=== PATIENT | male | born 1955 | race Caucasian/White ===

== ENCOUNTER 2017-03-02 10:29 | Day surgery (SDC) | payer OTHER, SELFPAY ==
[2017-03-02 10:45] VITALS: BP 122/86; PULSE 74; RESP 16; TEMP 36.7; O2SAT 97; BMI 27.5
--- NOTE | 2017-03-02 11:57 | PCM.DC.URO ---
Discharge Diet: Light diet - advance as tolerated Discharge Activity: May not drive while taking narcotic pain medications. Call your doctor if your incision/area has: Continuous Slow Oozing Suture Line Care: Avoid Pulling/Pushing, Avoid Pinching/Bending Instructions: Shock Wave Lithotripsy Allergies/Adverse Reactions: Allergies tetanus and diphtheria toxoids Adverse Reaction (Verified 02/23/17 13:10) Swelling Medications to take at Discharge Cholecalciferol (Vitamin D3) [Vitamin D3] 2,000 unit PO DAILY 02/23/17 Multivitamin [Multiple Vitamins] 1 each PO DAILY 02/23/17 [place]-3 Fatty Acids/Fish Oil [Fish Oil 1,000 mg Capsule] 1 each PO DAILY 02/23/17 Hydrocodone/Acetaminophen [[place] 5-325 Tablet] 1 ea PO Q4H PRN PRN #14 tab 03/02/17 The following prescriptions were given: Hydrocodone/Acetaminophen [[place] 5-325 Tablet] 1 ea PO Q4H PRN PRN #14 tab PRN Reason: Pain Primary Care Physician: Malvin Lopez Chi, MD [Primary Care Provider] - Please Follow Up With: Ignacio Schultz MD When: please call to make an appointment.
--- NOTE | 2017-03-02 12:36 | PCM.OPRPT ---
Problem List (1) Right kidney stone Status: Acute Report of Operation Date of Procedure: 03/02/17 Pre-Operative Diagnosis: Right renal calculi Post-Operative Diagnosis: Same Surgery/Procedure Performed:: Right extracorporeal shockwave lithotripsy Description of Surgical Findings:: 61-year-old male was taken back to the operating room after smooth induction of general anesthesia, patient was positioned on the lithotripter table and we localize the stones in the right kidney under fluoroscopy we then applied 3000 shockwaves to the stone at a rate of 120, power of the 5-6 and during the treatment the stone fragmented really well. Appeared to be a successful treatment. Patient's anesthetic was reversed he was taken back to the PACU in good condition he will follow-up in a few weeks with a KUB no stent was placed. Type of Anesthesia:: General Drains: none - Admit VTE Documentation VTE Present on Admission: No VTE Mechan Device Prophylaxis: SCD's VTE Pharm Prophylaxis ordered?: No Reason prophylaxis not ordered:: Treatment Not Indicated
[2017-03-02 12:41] VITALS: BP 122/86; PULSE 64; RESP 15; TEMP 37.3; O2SAT 95
[2017-03-02 12:45] VITALS: BP 121/87; BP 122/86; PULSE 61; RESP 16; O2SAT 94
[2017-03-02 13:00] VITALS: BP 122/86; BP 122/92; PULSE 64; RESP 16; TEMP 36.6; O2SAT 97
[2017-03-02] MEDS: HYDROcodone Bitartrate/Apap 5/325 Tablet PO (13:14)
[2017-03-02 14:36] VITALS: BP 122/86
== END 2017-03-02 14:37 | disposition home or self-care (01) ==
LOC: SDC 10:30 → AC 10:31
PROVIDERS: Family Provider Family Medicine Geriatric Medicine; PCP Family Medicine Geriatric Medicine; Visit Provider Urology
PROC: (CPT 50590; principal; 2017-03-02 12:20)
DX: N20.0 Calculus of kidney (principal); Z87.442 Personal history of urinary calculi
CPT/HCPCS: 00873; 50590; J7120; J2405

== ENCOUNTER → 2017-03-15 13:55 | Outpatient (CLI) | payer OTHER, SELFPAY ==
--- NOTE | 2017-03-15 13:58 | RAD_ITS ---
STUDY: X-RAY - ABDOMEN/PELVIS REASON FOR EXAM: Male, 61 years old. Post lithotripsy, kidney stones TECHNIQUE: 2 views COMPARISON: February 23 FINDINGS: Normal visualized lung bases. There is an unremarkable bowel gas pattern. There is no demonstrated free abdominal air. Stable-appearing stones are noted overlying the right renal shadow. Normal soft tissue structures. Mild degenerative vertebral changes. RAD/Abdomen Single View IMPRESSION: Stable right renal calculi. Electronically Signed: Dwayne Franklin DO at 18:48 EST Tel [phone], Service support ,
== END ==
PROVIDERS: Family Provider Family Medicine Geriatric Medicine; PCP Family Medicine Geriatric Medicine; Visit Provider Urology
DX: N20.0 Calculus of kidney (principal)
CPT/HCPCS: 74018

== ENCOUNTER → 2017-06-28 09:51 | Outpatient (CLI) | payer OTHER, SELFPAY ==
[2017-06-28 13:06] LABS: Absolute Lymphocyte Count 1.64 X10^3/ul (0.83-4.51); Absolute Neutrophil Count 2.2 X10^3/uL (2.0-7.7); Basophil# 0.02 X10^3/uL; Basophil% 0.4 % (0-1); Eosinophil# 0.11 X10^3/uL; Eosinophils% 2.4 % (0-5); Hematocrit 44.7 % (40-54); Hemoglobin 15.7 g/dl (13.0-16.5); Lymphocyte # 1.64 X10^3/ul (4.0); Lymphocyte % 35.7 % (19-41); Mean Corp Hgb Conc 35.1 g/gl (32-36); Mean Corpuscular Hgb 32.2 pg (27.0-32.0); Mean Corpuscular Volume 91.6 fL (80-94); Mean Platelet Vol. 11.8 fl (6.2-12.0); Monocyte% 13.1 % (0-10); Neutrophil # 2.21 X10^3/uL (2.7-7.7); Neutrophil % 48.2 % (47-70); POSITIVE COUNT NO; POSITIVE DIFFERENTIAL NO; POSITIVE MORPHOLOGY NO; Platelet Count 155 K/mm3 (150-450); RBC Distribution Width CV 12.9 % (11.6-14.6); RBC Distribution Width SD 42.2 fl (35.1-43.9); Red Blood Count 4.88 M/mm3 (4.6-6.2); White Blood Count 4.6 K/mm3 (4.4-11.0)
[2017-06-28 13:22] LABS: ALB/GLOB Ratio 1.3 RATIO (0.9-2.4); AST(SGOT) 22 U/L (15-37); Alanine Aminotransfer ALT/SGPT 25 U/L (16-61); Albumin, Serum 4.3 g/dL (3.2-5.0); Alkaline Phosphatase 57 U/L (45-117); Anion Gap 5 (5-15); BUN 13 mg/dL (7-18); BUN/Creat Ratio 12.3 RATIO (10-20); Calcium,Total 8.9 mg/dL (8.5-10.1); Chloride 106 mmol/L (98-107); Creatinine, Serum 1.06 mg/dL (0.70-1.30); EST Glomerular Filtration Rate 75 mL/min (>60); Est Glom Filt Rate - Afr Amer 91 mL/min (>60); Globulin 3.2 g/dL (2.2-4.2); Glucose 90 mg/dL (74-106); PSA,Total - Annual Screen 0.74 ng/mL (0.00-4.00); Potassium 3.9 mmol/L (3.5-5.1); Protein, Total 7.5 g/dL (6.4-8.2); Sodium Level 139 mmol/L (136-145); Thyroid Stim Hormone (TSH) 2.22 uIU/mL (0.358-3.74)
[2017-06-29 11:41] LABS: Hep C Antibodies <0.1 s/co ratio (0.0-0.9)
== END ==
PROVIDERS: Family Provider Family Medicine Geriatric Medicine; PCP Family Medicine Geriatric Medicine; Visit Provider Family Medicine Geriatric Medicine
DX: Z13.89 Encounter for screening for other disorder (principal); Z12.5 Encounter for screening for malignant neoplasm of prostate; F52.8 Other sexual dysfunction not due to a substance or known physiological condition; R53.83 Other fatigue
CPT/HCPCS: 36415; 80053; 84153; 84403; 84443; 85025; 86803; G0103

== ENCOUNTER → 2017-09-20 09:50 | Outpatient (CLI) | payer OTHER, SELFPAY | PROVIDERS: Family Provider Family Medicine Geriatric Medicine; PCP Family Medicine Geriatric Medicine; Visit Provider Urology | DX: N20.0 Calculus of kidney (principal) | CPT/HCPCS: 74018 ==

== ENCOUNTER → 2018-04-04 14:30 | Outpatient (CLI) | payer OTHER, SELFPAY ==
--- NOTE | 2018-04-04 14:46 | RAD_ITS ---
STUDY: X-RAY - ABDOMEN/PELVIS REASON FOR EXAM: Male, 62 years old. Right flank pain. TECHNIQUE: Two AP supine views of the abdomen and pelvis. COMPARISON: 09/20/2017 FINDINGS: Again noted are calcifications overlying the right renal shadow which likely represent right collecting system stones. There is no bowel obstruction. There is air and stool to the level of the rectum. The visualized osseous structures are within normal limits. RAD/Abdomen Single View IMPRESSION: Stable calcifications overlying the right renal shadow which likely represent right renal collecting system stones. No bowel obstruction. Electronically Signed: Kirk Reynaga, at 15:03 EST Tel , Service support ,
== END ==
PROVIDERS: Family Provider Family Medicine Geriatric Medicine; PCP Family Medicine Geriatric Medicine; Referring Provider Urology; Visit Provider Urology
DX: N20.0 Calculus of kidney (principal)
CPT/HCPCS: 74018

== ENCOUNTER 2018-04-26 06:40 | Day surgery (SDC) | payer OTHER, SELFPAY ==
--- NOTE | 2018-04-25 17:46 | PCM.HP.BLA ---
History and Physical Date of Admission: 04/26/18 I have kidney stones. HPI: GRAHAM MOSCOSO is a 62 year-old male established patient who is here for renal calculi. The problem is on the right side. He first noticed the symptoms 1 year ago. Pain is occuring on the right side. This is not his first kidney stone. He has had 2 stones prior to getting this one. He is currently having flank pain and back pain. He denies having groin pain, nausea, vomiting, fever, and chills. He has had eswl for treatment of his stones in the past. Multiple stones in the kidney. The stone is obstructing The kidney.. The stone is in the upper pole of the kidney.. ALLERGIES: Tetanus MEDICATIONS: None PSH: Renal ESWL, Right - 03/02/2017 NON- PSH: Colonoscopy - about 2016 Patient not documented to have received pneumococcal vaccination PMH: Calculus of kidney - 03/15/2017, - 02/13/2017, Bilateral, - 07/27/2016 Asymptomatic microscopic hematuria - 02/13/2017 Personal history of urinary calculi NON- PMH: None Immunizations: None FAMILY HISTORY: Alzheimer's Disease - Father Heart Disease - Mother SOCIAL HISTORY: Marital Status: Single Preferred Language: Lithuanian; Ethnicity: Not Or ; Race: White Current Smoking Status: Patient has never smoked. Tobacco Use Assessment Completed: Used Smokeless in last 30 days? Smoking cessation counseling was provided. Does not use smokeless tobacco. Social Drinker. Does not use drugs. Drinks 3 caffeinated drinks per day. Has not had a blood transfusion. REVIEW OF SYSTEMS: Constitutional: Patient denies fever, chills, weight loss, and weight gain. Genitourinary: Patient reports get up at night to void and history of stones. Patient denies frequent urination, urinary retention, leakage of urine, painful urination, blood in the urine, frequent uti's, difficulty starting stream, weak stream/scanty, and bedwetting. Notes: Reviewed previous review of systems 09/20/2017. No changes. VITAL SIGNS: 04/04/2018 03:08 PM Weight 180 lb / 81.65 kg Height 68 in / 172.72 cm BP 122/60 mmHg BMI 27.4 kg/m? - BMI Counseling was provided. MULTI-SYSTEM PHYSICAL EXAMINATION: Constitutional: Well-nourished. No physical deformities. Normally developed. Good grooming. Neck: Neck symmetrical, not swollen. Normal tracheal position. Respiratory: No labored breathing, no use of accessory muscles. Cardiovascular: Normal temperature, normal extremity pulses, no swelling, no varicosities. Lymphatic: No enlargement of neck, axillae, groin. Skin: No paleness, no jaundice, no cyanosis. No lesion, no ulcer, no rash. Neurologic / Psychiatric: Oriented to time, oriented to place, oriented to person. No depression, no anxiety, no agitation. Gastrointestinal: No mass, no tenderness, no rigidity, non obese abdomen. Eyes: Normal conjunctivae. Normal eyelids. Ears, Nose, Mouth, and Throat: Left ear no scars, no lesions, no masses. Right ear no scars, no lesions, no masses. Nose no scars, no lesions, no masses. Normal hearing. Normal lips. Musculoskeletal: Normal gait and station of head and neck. PAST DATA REVIEWED: Source Of History: Patient Records Review: Previous Doctor Records, Previous Patient Records X-Ray Review: KUB: Reviewed Films. Reviewed Report. Discussed With Patient. PROCEDURES: Urinalysis - [address]1881 Dipstick Dipstick Cont'd Specimen: Voided Blood: Neg Appearance: Clear pH: 6.5 Color: Yellow Protein: Neg Glucose: Normal Urobilinogen: Neg Bilirubin: Neg Nitrites: Neg Ketones: Neg Leukocyte Esterase: Neg ASSESSMENT: ICD-10 Details 1 : Calculus of kidney - N20.0 PLAN: Schedule Procedure: Unspecified Date - Cysto Uretero Lithotripsy - 24297, right Document Letter(s): Created for Patient: Clinical Summary The risks, benefits, and some of the possible complications of the proposed procedure were discussed with the patient at length and in detail including the possibility of bladder injury, urethral injury, ureteral injury, ureteral biopsy, ureteral lesion resection, open nephrectomy, a bladder biopsy, retrograde pyelograms, resection of a bladder lesion, dilation of the urethra, a postoperative catheter, placement of a ureteral stent, and others. The possible need for further surgical procedures was discussed with the patient. The possible need for postoperative treatments including further surgical procedures, chemotherapy, immunotherapy, radiation therapy, and others was discussed with the patient. The possibility that this operative procedure might not to cure the underlying disease, that micrometastatic disease might already be present, and that this underlying disease might result in the of the patient was discussed. The general risks of the operative procedure and the perioperative period were discussed with the patient at length and in detail including swelling, pain, nausea, vomiting, fever, chills, infection, wound infection, sepsis, renal failure, internal or external bleeding, intraoperative bowel, organ or vascular injuries, postoperative formation of scar tissue, the need for blood transfusions, deep venous thrombosis or blood clots, pulmonary embolus, pneumonia, respiratory failure, heart attack, stroke, he and others. All of the patient's questions were answered and he voiced an understanding of these risks, benefits and possible complications. The patient gave fully informed consent to proceed with the procedure. Notes: plan for Right ureteroscopy laser stones and stent
[2018-04-26] VITALS (8 sets, daily range): BP systolic 120–150; BP diastolic 72–97; PULSE 67–76; RESP 16; TEMP 35.9–36.7; O2SAT 92–97; BMI 28.3
[2018-04-26] MEDS: Cefazolin 2 GM in 0.9% Normal Saline 100 ML IV (09:18)
--- NOTE | 2018-04-26 09:21 | PCM.DC.URO ---
Discharge Diet: Light diet - advance as tolerated Discharge Activity: Return to Normal Activity Call your doctor if you observe: Fever of 101 or Higher, Inability to urinate, Uncontrolled pain Suture Line Care: Avoid Pulling/Pushing, Avoid Pinching/Bending Instructions: Treating Kidney Stones: Ureteroscopic Stone Removal Allergies/Adverse Reactions: Allergies tetanus and diphtheria toxoids Adverse Reaction (Verified 04/16/18 14:22) Swelling Medications to take at Discharge Cholecalciferol (Vitamin D3) [Vitamin D3] 2,000 unit PO DAILY 02/23/17 Multivitamin [Multiple Vitamins] 1 each PO DAILY 02/23/17 [place]-3 Fatty Acids/Fish Oil [Fish Oil 1,000 mg Capsule] 1 each PO DAILY 02/23/17 Hydrocodone/Acetaminophen [[place] 5-325 Tablet] 1 ea PO Q4H PRN PRN #14 tab 03/02/17 Acetaminophen [Tylenol Extra Strength] 500 mg PO Q4H PRN PRN #20 tablet 04/26/18 Ibuprofen 600 mg PO Q6H PRN PRN #20 tablet 04/26/18 The following prescriptions were given: Acetaminophen [Tylenol Extra Strength] 500 mg PO Q4H PRN PRN #20 tablet PRN Reason: Pain Ibuprofen 600 mg PO Q6H PRN PRN #20 tablet PRN Reason: Pain Primary Care Physician: Malvin Lopez Chi, MD [Primary Care Provider] - Test Results: Test results from this visit will be discussed in further detail at your follow-up appointment, if applicable. Please Follow Up With: Ignacio Schultz MD When: in 2 weeks, please call to make an appointment.
--- NOTE | 2018-04-26 10:47 | PCM.OPRPT ---
Report of Operation Date of Procedure: 04/26/18 Pre-Operative Diagnosis: Right ureteral calculi within a calyceal diverticulum 1 cm in size Post-Operative Diagnosis: Same Surgery/Procedure Performed:: Cystoscopy, right retrograde pyelogram, interpretation of radiographic images, balloon dilation of the ureter, balloon dilation of the right calyceal infundibulum, laser lithotripsy of stone fragments within the calyceal diverticulum, placement of a right stent. Description of Surgical Findings:: 62-year-old male has a stone in the right kidney giving him occasional pain off and on the right side we treated stone with shockwave lithotripsy 6 months ago, however this failed to cure the stone and stents are still visible I suspect to be from the based on the peripheral location of the stone is probably within a calyceal diverticulum today we can proceed with ureteroscopy and laser lithotripsy of the stone. Patient was taken back to the operating room after smooth induction of general anesthesia, he was then placed on the cystoscopy table, penis and testicles are prepped and draped in usual sterile fashion, went into the bladder with a 21 Croatian rigid cystourethroscope, the entire length of the urethra was normal, the bulbar regions normal, sphincter was intact, prostate had mild bilateral hypertrophy, within the bladder trigone is normal left and right ureters normal, I think cannulated the right ureteral orifice with a wire advanced a wire up into the kidney and then over the wire advanced a balloon dilator 10 cm 12 Croatian balloon dilator once I balloon dilated the distal ureter I then went up with the ureteroscope, pulled out the wire and then performed a retrograde pyelogram look at the anatomy and immediately could see that the stone was in the upper pole calyceal diverticulum 1 cm stone. I then inspected the upper pole and I could find a pinhole opening into this calyceal diverticulum. Once the diverticular opening was found then I put a wire through the diverticulum into the diverticular pocket I can see the wire coil in the pocket next of the stone I then advanced a balloon dilator over the wire into the pocket and balloon dilated the calyceal diverticular infundibular pocket and this opened up really nicely I then remove the balloon dilator went back up with the ureteroscope was able to get into the diverticulum and then started lasering the stone initially some fragments are easy to get to laser this clinic pretty quickly but then had a large fragment that was stuck on the wall that was anterior super hard to flex the scope to get into it eventually ended up turning the scope 180 degrees on its head and then I was able to get to the stone laser the stone off the wall and then it came back off the wall and then it went into a more natural position where he could finish lasering a stone in the little tiny pieces was executed took quite some long time probably about 45 minutes try to laser the stone completely. After lasering the stone completely a tiny fragments then the infundibular neck was bleeding a little bit from a laser in the neck a little bit and tiny fragments were inside the diverticulum that should pass and then I worked my way down the ureter I left the wire up in the kidney on that side and then over the wire I backloaded the scope and then advance a stent on the right side once a stent was in good position then I left the string of the stent I also evacuated the clots with our in the bladder and flush the bladder really well and then the urine was clear and then drained the bladder remove the scope and left the stent in place of the string attached were patient anesthetic was reversed taken back to PACU good condition plan to see him back next week to remove the stent , he will get it he will get a KUB beforehand Type of Anesthesia:: General Drains: stent right side - Admit VTE Documentation VTE Present on Admission: No VTE Mechan Device Prophylaxis: SCD's
[2018-04-26] MEDS: Ketorolac 15 MG/ML Vial IV (12:28)
== END 2018-04-26 13:32 | disposition home or self-care (01) ==
LOC: SDC 06:42 → AC 06:43
PROVIDERS: Family Provider Family Medicine Geriatric Medicine; PCP Family Medicine Geriatric Medicine; Referring Provider Urology; Visit Provider Urology
PROC: 0TJ98ZZ Inspection of Ureter, Via Natural or Artificial Opening Endoscopic (ICD-10-PCS; CPT 52352; principal; 2018-04-26 08:10)
DX: N20.1 Calculus of ureter (principal); Z87.442 Personal history of urinary calculi
CPT/HCPCS: 52356; 76000; J7120; C1769; C2617; J2405

== ENCOUNTER → 2018-05-02 15:51 | Outpatient (CLI) | payer OTHER, SELFPAY ==
[2018-04-26 07:20] VITALS: BMI 28.3
--- NOTE | 2018-05-02 15:55 | RAD_ITS ---
STUDY: X-RAY - ABDOMEN/PELVIS REASON FOR EXAM: Male, 62 years old. Right-sided kidney stones. Follow-up. TECHNIQUE: Two AP supine views of the abdomen and pelvis. COMPARISON: April 04, 2018. FINDINGS: The lung bases are not included. There is an unremarkable bowel gas pattern. There is no demonstrated free abdominal air. The visualized liver, spleen and kidneys are grossly normal in size and morphology. There is now a right ureteral stent which was not present on prior exam. The larger calcifications in the left kidney and no longer seen. There is a 3 mm calcification with other smaller vague densities. There is no visualization of calcifications along the course of the ureteral stent. Normal soft tissue structures. Normal visualized osseous structures. RAD/Abdomen Single View IMPRESSION: 1. Right ureteral stent. 2. Decreased number of right renal calculi when compared to prior study. The largest calcification measures 3 mm. Electronically Signed: Misael Chester DO at 9:26 EDT Tel [phone], Service support ,
== END ==
PROVIDERS: Family Provider Family Medicine Geriatric Medicine; PCP Family Medicine Geriatric Medicine; Referring Provider Urology; Visit Provider Urology
DX: N20.0 Calculus of kidney (principal)
CPT/HCPCS: 74018

== ENCOUNTER → 2018-05-09 10:09 | Outpatient (CLI) | payer OTHER, SELFPAY ==
[2018-04-26 07:20] VITALS: BMI 28.3
== END ==
PROVIDERS: Family Provider Family Medicine Geriatric Medicine; PCP Family Medicine Geriatric Medicine; Referring Provider Family Medicine Geriatric Medicine; Visit Provider Family Medicine Geriatric Medicine
DX: R68.83 Chills (without fever) (principal)
CPT/HCPCS: 87633

== ENCOUNTER → 2018-07-08 | Outpatient (CLI) | payer OTHER, SELFPAY ==
[2018-04-26 07:20] VITALS: BMI 28.3
[2018-07-08 17:28] LABS: Absolute Lymphocyte Count 1.53 X10^3/ul (0.83-4.51); Absolute Neutrophil Count 2.6 X10^3/uL (2.0-7.7); Basophil# 0.02 X10^3/uL; Basophil% 0.4 % (0-1); Eosinophil# 0.06 X10^3/uL; Eosinophils% 1.3 % (0-5); Hematocrit 42.7 % (40-54); Hemoglobin 15.1 g/dl (13.0-16.5); Lymphocyte # 1.53 X10^3/ul (4.0); Lymphocyte % 32.8 % (19-41); Mean Corp Hgb Conc 35.4 g/gl (32-36); Mean Corpuscular Hgb 32.4 pg (27.0-32.0); Mean Corpuscular Volume 91.6 fL (80-94); Mean Platelet Vol. 11.1 fl (6.2-12.0); Monocyte# 0.41 X10^3/uL; Monocyte% 8.8 % (0-10); Neutrophil # 2.64 X10^3/uL (2.7-7.7); Neutrophil % 56.5 % (47-70); Platelet Count 176 K/mm3 (150-450); RBC Distribution Width CV 13.5 % (11.6-14.6); RBC Distribution Width SD 44.2 fl (35.1-43.9); Red Blood Count 4.66 M/mm3 (4.6-6.2); White Blood Count 4.7 K/mm3 (4.4-11.0)
[2018-07-08 17:36] LABS: POSITIVE COUNT NO; POSITIVE DIFFERENTIAL NO; POSITIVE MORPHOLOGY NO
[2018-07-08 17:56] LABS: ALB/GLOB Ratio 1.3 RATIO (0.9-2.4); AST(SGOT) 18 U/L (15-37); Alanine Aminotransfer ALT/SGPT 30 U/L (16-61); Alkaline Phosphatase 57 U/L (45-117); Anion Gap 11 (5-15); BUN 17 mg/dL (7-18); BUN/Creat Ratio 16.7 RATIO (10-20); Calcium,Total 8.9 mg/dL (8.5-10.1); Chloride 107 mmol/L (98-107); Creatinine, Serum 1.02 mg/dL (0.70-1.30); EST Glomerular Filtration Rate 78 mL/min (>60); Est Glom Filt Rate - Afr Amer 95 mL/min (>60); Globulin 3.1 g/dL (2.2-4.2); Glucose 107 mg/dL (74-106); PSA,Total - Annual Screen 0.65 ng/mL (0.00-4.00); Potassium 3.6 mmol/L (3.5-5.1); Protein, Total 7.1 g/dL (6.4-8.2); Sodium Level 144 mmol/L (136-145); Thyroid Stim Hormone (TSH) 1.69 uIU/mL (0.358-3.74)
== END | disposition home or self-care (01) ==
LOC: POLAB3 13:46
PROVIDERS: Family Provider Family Medicine Geriatric Medicine; PCP Family Medicine Geriatric Medicine; Visit Provider Family Medicine Geriatric Medicine
DX: E23.6 Other disorders of pituitary gland (principal); R53.83 Other fatigue; Z12.5 Encounter for screening for malignant neoplasm of prostate
CPT/HCPCS: 36415; 80053; 84153; 84403; 84443; 85025; G0103

== ENCOUNTER → 2019-07-10 12:11 | Outpatient (CLI) | payer OTHER, SELFPAY ==
[2018-04-26 07:20] VITALS: BMI 28.3
[2019-07-10 12:40] LABS: Absolute Lymphocyte Count 1.56 X10^3/uL (0.83-4.51); Absolute Neutrophil Count 2.1 X10^3/uL (2.0-7.7); Basophil# 0.03 X10^3/uL; Basophil% 0.7 % (0-1); Eosinophil# 0.09 X10^3/uL; Eosinophils% 2.1 % (0-5); Hematocrit 44.9 % (40-54); Hemoglobin 15.3 g/dL (13.0-16.5); Lymphocyte # 1.56 X10^3/ul (4.0); Lymphocyte % 35.7 % (19-41); Mean Corp Hgb Conc 34.1 g/dL (32-36); Mean Corpuscular Hgb 31.7 pg (27.0-32.0); Mean Platelet Vol. 11.6 fl (6.2-12.0); Monocyte# 0.57 X10^3/uL; NRBC Flagged by Analyzer 0 % (0-5); Platelet Count 172 K/mm3 (150-450); RBC Distribution Width CV 12.6 % (11.6-14.6); RBC Distribution Width SD 43.2 fl (35.1-43.9); Red Blood Count 4.83 M/mm3 (4.6-6.2); White Blood Count 4.4 K/mm3 (4.4-11.0)
[2019-07-10 13:11] LABS: ALB/GLOB Ratio 1.3 RATIO (0.9-2.4); AST(SGOT) 23 U/L (15-37); Alanine Aminotransfer ALT/SGPT 30 U/L (16-61); Albumin, Serum 4.1 g/dL (3.2-5.0); Alkaline Phosphatase 53 U/L (45-117); Anion Gap 8 (5-15); BUN 19 mg/dL (7-18); BUN/Creat Ratio 18.1 RATIO (10-20); Chloride 105 mmol/L (98-107); Creatinine, Serum 1.05 mg/dL (0.70-1.30); EST Glomerular Filtration Rate 76 mL/min (>60); Est Glom Filt Rate - Afr Amer 91 mL/min (>60); Globulin 3.2 g/dL (2.2-4.2); Glucose 87 mg/dL (74-106); PSA,Total - Annual Screen 0.62 ng/mL (0.00-4.00); Potassium 4.2 mmol/L (3.5-5.1); Protein, Total 7.3 g/dL (6.4-8.2); Sodium Level 139 mmol/L (136-145); Thyroid Stim Hormone (TSH) 2.42 uIU/mL (0.358-3.74)
== END ==
PROVIDERS: PCP Family Medicine Geriatric Medicine; Visit Provider Family Medicine Geriatric Medicine
DX: F52.8 Other sexual dysfunction not due to a substance or known physiological condition (principal); R53.83 Other fatigue; Z12.5 Encounter for screening for malignant neoplasm of prostate
CPT/HCPCS: 36415; 80053; 84153; 84403; 84443; 85025; G0103

== ENCOUNTER → 2019-07-22 15:14 | Outpatient (CLI) | payer OTHER, SELFPAY ==
[2018-04-26 07:20] VITALS: BMI 28.3
--- NOTE | 2019-07-22 15:17 | RAD_ITS ---
STUDY: RADIOGRAPH- ABDOMEN/PELVIS REASON FOR EXAM: Male, 64 years old. F/U FOR KIDNEY STONE ON THE RIGHT THAT WAS REMOVED ABOUT 1 YEAR AGO PER PATIENT. TECHNIQUE: KUB COMPARISON: 05/02/2018 radiograph. FINDINGS: Stones in the upper pole of the right kidney, at least 2, largest 8 mm diameter, similar to previous. The right ureteral stent seen on the previous study has been removed. No evidence of free air or bowel obstruction. No suspicious mass effect. No acute osseous abnormality. RAD/Abdomen Single View IMPRESSION: Stones in the upper pole of the right kidney, at least 2, largest 8 mm diameter, similar to previous. Electronically Signed: Lon Raymundo, at 22:33 EDT Tel , Service support ,
== END ==
PROVIDERS: PCP Family Medicine Geriatric Medicine; Referring Provider Urology; Visit Provider Urology
DX: N20.0 Calculus of kidney (principal)
CPT/HCPCS: 74018

== ENCOUNTER 2020-04-16 08:46 | Outpatient (RCR) | payer OTHER, SELFPAY ==
[2018-04-26 07:20] VITALS: BMI 28.3
[2020-04-16] MEDS: COVID-19 VACC, MRNA(PFIZER)/PF 30 MCG/0.3 ML SYRINGE IM (16:40)
[2020-05-07] MEDS: COVID-19 VACC, MRNA(PFIZER)/PF 30 MCG/0.3 ML SYRINGE IM (16:25)
== END 2020-07-13 23:59 ==
LOC: IMMUN 08:46
PROVIDERS: PCP Family Medicine Geriatric Medicine; Visit Provider Family Medicine
DX: Z23 Encounter for immunization (principal)
CPT/HCPCS: 0001A; 0002A; 91300

== ENCOUNTER → 2020-07-27 09:28 | Outpatient (CLI) | payer MEDICARE, SELFPAY ==
[2018-04-26 07:20] VITALS: BMI 28.3
[2020-07-27 12:43] LABS: Absolute Lymphocyte Count 1.77 X10^3/uL (0.83-4.51); Absolute Neutrophil Count 3.5 X10^3/uL (2.0-7.7); Basophil# 0.03 X10^3/uL; Basophil% 0.5 % (0-1); Eosinophils% 1.6 % (0-5); Hematocrit 43.7 % (40-54); Hemoglobin 15.5 g/dL (13.0-16.5); Lymphocyte # 1.77 X10^3/ul (0.83-4.51); Lymphocyte % 29.1 % (19-41); Mean Corp Hgb Conc 35.5 g/dL (32-36); Mean Corpuscular Hgb 32.3 pg (27.0-32.0); Mean Platelet Vol. 11.6 fl (6.2-12.0); Monocyte# 0.71 X10^3/uL; Monocyte% 11.7 % (0-10); NRBC Flagged by Analyzer 0 % (0-5); Neutrophil # 3.46 X10^3/uL (2.7-7.7); Neutrophil % 56.9 % (47-70); Platelet Count 173 K/mm3 (150-450); RBC Distribution Width CV 12.6 % (11.6-14.6); RBC Distribution Width SD 41.3 fl (35.1-43.9); White Blood Count 6.1 K/mm3 (4.4-11.0)
[2020-07-27 13:08] LABS: Vitamin D,25 Hydroxy 36.4 ng/mL
[2020-07-27 13:15] LABS: ALB/GLOB Ratio 1.3 RATIO (0.9-2.4); AST(SGOT) 23 U/L (15-37); Alanine Aminotransfer ALT/SGPT 25 U/L (16-61); Albumin, Serum 4.1 g/dL (3.2-5.0); Alkaline Phosphatase 59 U/L (45-117); Anion Gap 7 (5-15); BUN 16 mg/dL (7-18); BUN/Creat Ratio 15.8 RATIO (10-20); Chloride 107 mmol/L (98-107); Creatinine, Serum 1.01 mg/dL (0.70-1.30); EST Glomerular Filtration Rate 79 mL/min (>60); Est Glom Filt Rate - Afr Amer 95 mL/min (>60); Globulin 3.2 g/dL (2.2-4.2); Glucose 86 mg/dL (74-106); PSA,Total - Annual Screen 0.57 ng/mL (0.00-4.00); Potassium 4.2 mmol/L (3.5-5.1); Protein, Total 7.3 g/dL (6.4-8.2); Sodium Level 139 mmol/L (136-145)
== END ==
PROVIDERS: PCP Family Medicine Geriatric Medicine; Referring Provider Family Medicine Geriatric Medicine; Visit Provider Family Medicine Geriatric Medicine
DX: E55.9 Vitamin D deficiency, unspecified (principal); F52.8 Other sexual dysfunction not due to a substance or known physiological condition; R53.83 Other fatigue; Z12.5 Encounter for screening for malignant neoplasm of prostate
CPT/HCPCS: 36415; 80053; 82306; 84153; 84403; 84443; 85025; G0103